=== PATIENT | male | born 1970 | race African-American/Black ===

== ENCOUNTER 2022-06-13 09:25 | Day surgery (SDC) | payer MEDICARE, OTHER ==
[2022-06-11 15:03] VITALS: BMI 32.1
[2022-06-13] MEDS ORDERED: Lidocaine 1% MPF 2 ML VIAL ONE (10:48)
[2022-06-13] MEDS ORDERED: PROPOFOL 40 ML ONE (11:11)
[2022-06-13] MEDS ORDERED: Fentanyl 100 MCG/2 ML VIAL ONE (11:30)
== END 2022-06-13 12:32 | disposition home or self-care (01) ==
LOC: CSHSDC 09:25
PROVIDERS: ATTEND Internal Medicine Gastroenterology
PROC: 0DJD8ZZ Inspection of Lower Intestinal Tract, Via Natural or Artificial Opening Endoscopic (ICD-10-PCS; principal; 2022-06-13)
DX: K57.30 Diverticulosis of large intestine without perforation or abscess without bleeding (principal); I10 Essential (primary) hypertension; E78.5 Hyperlipidemia, unspecified; R73.03 Prediabetes; Z87.891 Personal history of nicotine dependence; E66.9 Obesity, unspecified; Z68.32 Body mass index [BMI] 32.0-32.9, adult; Z20.822 Contact with and (suspected) exposure to COVID-19; Z79.899 Other long term (current) drug therapy
CPT/HCPCS: 87811; J2704; J3010